=== PATIENT | female | born 1995 | race African-American/Black ===

== ENCOUNTER 2020-05-23 21:40 | Emergency (ER) | payer OTHER ==
[~2020-05-23] VITALS: Ht 154.9 cm; Wt 49.9 kg
[2020-05-23] MEDS ORDERED: PROAIR HFA8.5 GM INH (22:23)
[2020-05-23 23:30] VITALS: BP 122/80
== END 2020-05-23 23:35 | disposition home or self-care (01) ==
LOC: ER 21:40
DX: J45.909 Unspecified asthma, uncomplicated (principal); Z88.0 Allergy status to penicillin; Z88.6 Allergy status to analgesic agent

== ENCOUNTER 2021-02-21 14:55 | Emergency (ER) | payer OTHER ==
[~2021-02-21] VITALS: Ht 154.9 cm; Wt 46.3 kg
[~2021-02-21 14:55] MED LIST: PROAIR HFA8.5 GM INH
[2021-02-21 15:25] LABS: URINE BILIRUBIN NEGATIVE (Negative); URINE BLOOD TRACE (Negative); URINE CLARITY CLEAR; URINE COLOR YELLOW; URINE GLUCOSE-RANDOM* NEGATIVE (Negative); URINE KETONES TRACE (Negative); URINE LEUKOCYTES-REFLEX TRACE (Negative); URINE NITRITE-REFLEX NEGATIVE (Negative); URINE PROTEIN (DIPSTICK) 2+ (Negative); URINE SPECIFIC GRAVITY >= 1.030 (1.005-1.035); URINE UROBILINOGEN 0.2 E.U./dl (0.2-1.0)
[2021-02-21 15:33] LABS: MUCUS >6 Heavy strn/LPF (None Seen); SQUAMOUS >10 Many /LPF (0-3)
[2021-02-21 15:34] LABS: CASTS None Seen /LPF (None Seen); URINE WBC-REFLEX 6-15 Few /HPF (0-5)
[2021-02-21 15:35] LABS: BACTERIA-REFLEX 1-9 Few /HPF (None Seen); CRYSTALS None Seen /LPF (None Seen); URINE RBC 3-10 Few /HPF (NONE SEEN)
[2021-02-21] MEDS ORDERED: METHOCARBAMOL500 M2 PO (15:46)
[2021-02-21] MEDS ORDERED: ROXICODONE5 M2 PO (15:46)
[2021-02-21] MEDS ORDERED: CEPHALEXIN500 MG PO (16:10)
[2021-02-21 16:32] VITALS: BP 117/78
== END 2021-02-21 16:34 | disposition home or self-care (01) ==
LOC: ER 14:55
PROVIDERS: Nurse Practitioner Family
DX: G89.29 Other chronic pain (principal); M54.5 Low back pain; N39.0 Urinary tract infection, site not specified; J45.909 Unspecified asthma, uncomplicated; Z88.0 Allergy status to penicillin; Z88.6 Allergy status to analgesic agent

== ENCOUNTER 2021-02-23 20:57 | Emergency (ER) | payer OTHER ==
[~2021-02-23] VITALS: Ht 154.9 cm; Wt 46.3 kg
[~2021-02-23 20:57] MED LIST changes: +CEPHALEXIN500 MG PO; +METHOCARBAMOL500 M2 PO; +ROXICODONE5 M2 PO
[2021-02-23 21:32] LABS: URINE BILIRUBIN NEGATIVE (Negative); URINE BLOOD NEGATIVE (Negative); URINE CLARITY CLEAR; URINE COLOR YELLOW; URINE GLUCOSE-RANDOM* NEGATIVE (Negative); URINE KETONES NEGATIVE (Negative); URINE LEUKOCYTES-REFLEX TRACE (Negative); URINE NITRITE-REFLEX NEGATIVE (Negative); URINE PROTEIN (DIPSTICK) NEGATIVE (Negative); URINE SPECIFIC GRAVITY >= 1.030 (1.005-1.035)
[2021-02-24 02:32] VITALS: BP 123/87
== END 2021-02-23 22:57 | disposition home or self-care (01) ==
LOC: ER 20:57
PROVIDERS: Nurse Practitioner
DX: M54.5 Low back pain (principal); G89.29 Other chronic pain; J45.909 Unspecified asthma, uncomplicated; Z79.899 Other long term (current) drug therapy; Z79.2 Long term (current) use of antibiotics; Z88.0 Allergy status to penicillin; Z88.8 Allergy status to other drugs, medicaments and biological substances

== ENCOUNTER 2021-03-02 19:41 | Emergency (ER) | payer OTHER ==
[~2021-03-02] VITALS: Ht 154.9 cm; Wt 46.3 kg
[2021-03-02 21:44] VITALS: BP 114/69
== END 2021-03-02 21:45 | disposition home or self-care (01) ==
LOC: ER 19:41
DX: G89.29 Other chronic pain (principal); M54.9 Dorsalgia, unspecified; R06.00 Dyspnea, unspecified; J45.909 Unspecified asthma, uncomplicated; Z79.899 Other long term (current) drug therapy; Z88.0 Allergy status to penicillin; Z88.8 Allergy status to other drugs, medicaments and biological substances